=== PATIENT | female | born 1985 | race Caucasian/White ===

== ENCOUNTER → 2019-09-10 13:49 | Outpatient (BNVA) | payer MEDICAID, SELFPAY | PROVIDERS: PCP Nurse Practitioner Family; Referring Provider Nurse Practitioner Family; Visit Provider Specialist | DX: G43.109 Migraine with aura, not intractable, without status migrainosus (principal); M54.5 Low back pain; F17.210 Nicotine dependence, cigarettes, uncomplicated | CPT/HCPCS: 99204; 99214 ==

== ENCOUNTER → 2019-10-14 11:43 | Outpatient (BNVA) | payer MEDICAID, SELFPAY | PROVIDERS: PCP Nurse Practitioner Family; Visit Provider Specialist | DX: G43.109 Migraine with aura, not intractable, without status migrainosus (principal); F17.210 Nicotine dependence, cigarettes, uncomplicated | CPT/HCPCS: 99213 ==

== ENCOUNTER 2023-03-05 20:09 | Emergency (ER) | payer MEDICAID, SELFPAY ==
[2023-03-05 20:12] VITALS: BP 139/82; PULSE 86; RESP 18; TEMP 37.2; O2SAT 95; BMI 28.4
--- NOTE | 2023-03-05 20:17 | XRR_ITS ---
PROCEDURE INFORMATION: Exam: XR Chest Exam date and time: 03/05/2023 8:24 PM Age: 37 years old Clinical indication: Shortness of breath; Additional info: SOB TECHNIQUE: Imaging protocol: Radiologic exam of the chest. Views: 1 view. COMPARISON: CR XR chest 1V [id number] 06/09/2019 11:51 AM FINDINGS: Lungs: Unremarkable. No consolidation. Pleural spaces: Unremarkable. No pleural effusion. No pneumothorax. Heart/Mediastinum: Unremarkable. No cardiomegaly. Bones/joints: Unremarkable. XR/XR chest 1V portable [id number] IMPRESSION: No acute findings.
--- NOTE | 2023-03-05 21:33 | W.ED.SOB ---
HPI - SOB/Dyspnea General: Chief Complaint: Shortness of Breath/Dyspnea Stated Complaint: sob Time Seen by Provider: 03/05/23 21:33 History of Present Illness: HPI Narrative: 37-year-old female comes in today with cough and congestion for approximately 2 to 3 days. Patient has a history of pneumonia with sepsis in the past. Patient denies any chronic medical problems. Patient appears mildly unwell but not toxic. Patient has an occasional harsh cough. Patient denies asthma. Patient does have a history of cigarette smoking which she stopped approximately 1 year ago. Review of Systems General: Reports: 10 or more systems reviewed and unremarkable except in HPI and below Resp: Reports: dyspnea, non-productive cough and wheezing PFSH ED PFSH: Family History Other CAD (coronary artery disease) Cancer Diabetes Hypertension Denies family history of Stroke Social History Smoking and tobacco status: light tobacco smoker cigarettes Packs smoked per day: 1 Alcohol intake: current Alcohol intake frequency: few times a month Substance/Drug Use: current Substance/Drug use frequency: daily Female Reproductive History: Date of last menstrual period: 03/03/23 Physical Exam Const: COMMON NORMALS: alert HENMT: COMMON NORMALS: normocephalic HEAD & SCALP: normocephalic MOUTH: Normal oral and palatal mucosa present Neck/C-Spine: COMMON NORMALS: full ROM Resp: COMMON NORMALS: normal respiratory effort AUSCULTATION: rhonchi and wheezes Cardio: COMMON NORMALS: regular rate and regular rhythm RATE: regular rate RHYTHM: regular rhythm GI: COMMON NORMALS: Soft to palpation PALPATION: Yes Soft to palpation Extremity: COMMON NORMALS: normal to inspection Neuro: SENSORIUM/ORIENTATION: Yes alert Skin: COMMON NORMALS: turgor normal GENERAL SKIN EXAM: turgor normal Course Vital Signs: Vital signs: Vital Signs Temperature 99 F 03/05/23 20:12 Pulse Rate 86 03/05/23 20:12 Respiratory Rate 18 03/05/23 20:12 Blood Pressure 139/82 03/05/23 20:12 Pulse Oximetry 95 03/05/23 20:12 Oxygen Delivery Me thod Room Air 03/05/23 20:12 MDM - SOB/Dyspnea Medical Decision Making Patient presents with illness for approximately 2 to 3 days. On exam patient has rhonchi and wheezing in the lung [place]. Vital signs are normal. Abdomen soft nontender. No edema is noted in the extremities. Differential diagnosis includes pneumonia, acute bronchitis, COPD exacerbation, asthma exacerbation. Chest x-ray was normal. Believe patient probably has an acute bronchitis may be secondary to COPD due to her history of cigarette smoking. We will go ahead and treat for acute bronchitis with antibiotic and steroids. Patient was also given a inhaler to use as needed for increased shortness of breath or wheezing. Patient reported understanding of care plan and need for follow-up or return to the ER. Lab Data Labs/Radiology: Radiology Impressions Chest X-Ray 03/05/23 20:17 IMPRESSION: No acute findings. Discharge Plan Discharge Patient Disposition: Home Clinical Impression: Acute bronchitis due to infection Condition: Stable Prescriptions: New albuterol sulfate 90 mcg/actuation HFA aerosol inhaler 2 inh inhalation Q4H PRN (Reason: shortness of breath or wheezing) Qty: 16 0RF prednisone 20 mg tablet 20 mg PO DAILY Qty: 7 0RF azithromycin 250 mg tablet 250 mg PO DAILY Qty: 6 0RF No Action topiramate 50 mg tablet 50 mg PO DAILY Zyrtec 10 mg capsule 10 mg PO DAILY acetaminophen [Tylenol Extra Strength] 500 mg tablet 500 mg PO Q6H PRN Discharge Orders: Discharge ED (Routine); Ordered 03/05/23 Ordered By: Cory Rhodes Referrals: Missy Lira FNP [Primary Care Provider] - Discharge Diet: Usual diet Discharge Activity: Increase activity as tolerated Patient Instructions: Acute Bronchitis (ED) Activity Restrictions/Additional Instructions: Drink plenty of water and fluids. Use albuterol inhaler 2 puffs every 4 hours as needed for shortness of breath or wheezing or persistent cough. Take azithromycin 250 mg daily for the next 6 days. Use prednisone 20 mg daily for the next 7 days. Follow-up with primary care in 3 to 5 days for recheck. Return to ED for worsening symptoms such as vomiting, inability to hold fluids down, worsening shortness of breath, severe chest pain, or new concerns. Coding Level of Care Code ED Wilderness Guide for Huyen Garcia
[2023-03-05] MEDS: dexamethasone 10 mg/mL INJ IM (22:13)
[2023-03-05] MEDS: azithromycin 250 mg Tablet 500 MG PO (22:13)
[2023-03-05] MEDS: ipratropium-albuterol 3 mL Neb INHALATION (22:24)
[2023-03-05 22:25] VITALS: PULSE 85; RESP 18; O2SAT 95
[2023-03-05 22:27] VITALS: PULSE 85; RESP 18; O2SAT 95
[2023-03-05] MEDS: albuterol 8 gm MDI 2 PUFF INHALATION (22:27)
[2023-03-05 22:37] VITALS: BP 116/51; PULSE 88; RESP 22; O2SAT 95
[2023-03-05 22:57] LABS: SARS Covid-2 Antigen negative (Negative)
== END 2023-03-05 22:38 | disposition home or self-care (01) ==
PROVIDERS: Emergency Medicine; Emergency Provider Nurse Practitioner Family; PCP Nurse Practitioner Family
DX: J20.9 Acute bronchitis, unspecified (principal); F17.210 Nicotine dependence, cigarettes, uncomplicated
CPT/HCPCS: 71045; 87426; 94640; 96372; 99284; J1100; J3535; Q0144